=== PATIENT | male | born 1980 | race Caucasian/White ===

== ENCOUNTER → 2022-05-20 11:59 | Outpatient (CLI) | payer BC, SELFPAY ==
--- NOTE | ~2022-05-20 | US_ITS ---
EXAMINATION: US abdomen limited DATE: 05/20/2022 12:21 INDICATION: Right periumbilical pain TECHNIQUE: Multiple grayscale and Doppler ultrasound images of the abdomen were obtained. COMPARISON: None available FINDINGS: Targeted ultrasound is performed in the area of clinical concern. No sonographically detect ed hernia is identified. Normal subcutaneous tissues are seen. IMPRESSION: 1. No sonographically detected ventral hernia. Reviewed, dictated and finalized at location [facility].
== END ==
PROVIDERS: PCP Surgery; Visit Provider Surgery
DX: R10.31 Right lower quadrant pain (principal)
CPT/HCPCS: 76705

== ENCOUNTER → 2022-06-01 12:43 | Outpatient (CLI) | payer BC, SELFPAY ==
--- NOTE | ~2022-06-01 | CT_ITS ---
EXAMINATION: CT abdomen wo con DATE: 06/01/2022 13:03 INDICATION: Pain to the right of the umbilicus following lifting an object 3 weeks ago. Evaluate for spigelian hernia. TECHNIQUE: Computed tomography (CT) of the abdomen was performed without intravenous contrast. Automa greyson exposure control and iterative reconstruction technique were employed. Exam dose: 309.77 mGy-cm total exam DLP. COMPARISON: 09/19/2016 CT abdomen pelvis 05/20/2022 Limited abdominal ultrasound examination FINDINGS: Right foramen of [place]k hernia containing the posterior aspect of the upper pole the rig ht kidney and fat. The lung bases are clear of infiltrate or consolidation. Normal heart size. No per icardial or pleural effusion. The liver, spleen, pancreas are unremarkable. No bile duct or pancreatic duct dilatation. Normal morp hology of the adrenal glands. No renal mass lesion or urinary tract calculus or hydroureteronephrosis . No bowel obstruction or intraperitoneal free air. Small fat-containing umbilical hernia. Included skeletal structures are unremarkable. IMPRESSION: Small fat-containing umbilical hernia; no other abdominal wall hernia including any spig hema hernia is detected. Reviewed, dictated and finalized at [facility]. Reviewed, dictated and finalized at location B. IMPRESSION: Small fat-containing umbilical hernia; no other abdominal wall her tomas including any spigelian hernia is detected.
== END ==
PROVIDERS: PCP Family Medicine; Visit Provider Surgery
DX: K42.9 Umbilical hernia without obstruction or gangrene (principal)
CPT/HCPCS: 74150